=== PATIENT | male | born 1985 | race Caucasian/White ===

== ENCOUNTER 2016-11-14 07:29 | Emergency (ER) | payer OTHER ==
[~2016-11-14] VITALS: Ht 175.3 cm; Wt 90.7 kg
[2016-11-14] MEDS ORDERED: ESCI10TA2 PO (07:41)
[2016-11-14] MEDS ORDERED: KETO2SH (07:42)
[2016-11-14 08:03] LABS: BASO % 0.2 % (0.0-1.0); EOS # 0.2 K/mm3 (0.0-0.50); EOS % 2.9 % (0.0-3.0); LARGE UNSTAINED CELL # 0.1 K/mm3 (0.0-0.4); LARGE UNSTAINED CELL % 1.3 % (0.0-4.0); LYMPH # 1.4 K/mm3 (1.5-6.5); LYMPH % 20.8 % (24.0-44.0); MEAN CORPUSCULAR HEMOGLOBIN 29.7 pg (27.0-33.0); MEAN CORPUSCULAR HGB CONC 34.9 g/dl (32.0-36.5); MEAN CORPUSCULAR VOLUME 85.3 fl (80.0-96.0); MONO # 0.4 K/mm3 (0.0-0.8); MONO % 5.6 % (0.0-5.0); NEUTROPHILS # 4.5 K/mm3 (1.8-7.7); NEUTROPHILS % 69.1 % (36.0-66.0); PLATELET COUNT, AUTOMATED 220 k/mm3 (150-450); RED CELL DISTRIBUTION WIDTH 12.7 % (11.5-14.5); WHITE BLOOD COUNT 6.4 K/mm3 (4.0-10.0)
[2016-11-14 08:27] LABS: ANION GAP 7 MEQ/L (8-16); BLOOD UREA NITROGEN 13 MG/DL (7-18); CALCIUM LEVEL 8.7 MG/DL (8.5-10.1); CARBON DIOXIDE LEVEL 25 MEQ/L (21-32); CHLORIDE LEVEL 106 MEQ/L (98-107); GLOMERULAR FILTRATION RATE > 60.0 (>60); GLUCOSE, FASTING 114 MG/DL (70-105); POTASSIUM SERUM 3.8 MEQ/L (3.5-5.1); SODIUM LEVEL 138 MEQ/L (136-145)
--- NOTE | 2016-11-14 08:42 | REP ---
Portable chest: Comparison is 09/06/2009. The lung garcia are clear. The cardiac size is normal. The evelyn, mediastinum, and bony thorax are unremarkable. Impression: Negative portable chest. Signed by Raimundo Lozada MD 11/14/2016 08:34 A
[2016-11-14 10:17] VITALS: BP 143/79
--- NOTE | 2016-11-15 21:28 | ECGEPIP ---
Stationary ECG Study [facility] - ED Test Date: 2016-11-14 Pat Name: FADI CASH Department: Room: - Gender: M Plan Rep: JT : 1985 Requested By: HARMAN He Order Number: [id number] Reading MD: Anjana Thomson Measurements Intervals [place] Rate: 81 P: 4 NV: 157 QRS: 60 QRSD: 92 T: 22 QT: 346 QTc: 402 Interpretive Statements SINUS RHYTHM NO PRIOR FOR COMPARISON Electronically Signed On 11-15-2016 21:28:24 EDT by Anjana Thomson
== END 2016-11-14 10:18 | disposition home or self-care (01) ==
LOC: EDBD 07:29 → M ED 08:07
DX: R07.9 Chest pain, unspecified (principal); F41.9 Anxiety disorder, unspecified; M10.9 Gout, unspecified; Z87.891 Personal history of nicotine dependence

== ENCOUNTER 2017-07-31 12:02 | Emergency (ER) | payer OTHER, SELFPAY ==
[~2017-07-31] VITALS: Ht 175.3 cm; Wt 90.9 kg
[~2017-07-31 12:02] MED LIST: ESCI10TA2 PO; KETO2SH
[2017-07-31 12:58] LABS: MEAN CORPUSCULAR HEMOGLOBIN 29.9 pg (27.0-33.0); MEAN CORPUSCULAR HGB CONC 35.1 g/dl (32.0-36.5); MEAN CORPUSCULAR VOLUME 85.1 fl (80.0-96.0); PLATELET COUNT, AUTOMATED 275 10^3/uL (150-450); RED CELL DISTRIBUTION WIDTH 12.7 % (11.5-14.5); WHITE BLOOD COUNT 10.9 10^3/uL (4.0-10.0)
[2017-07-31 13:29] LABS: METHADONE URINE NEGATIVE (NEGATIVE)
[2017-07-31 13:41] LABS: ALBUMIN 4.3 GM/DL (3.2-5.2); ALBUMIN/GLOBULIN RATIO 1.34 (1.00-1.93); ALKALINE PHOSPHATASE 66 U/L (45-117); ALT/SGPT 28 U/L (12-78); ANION GAP 9 MEQ/L (8-16); AST/SGOT 17 U/L (7-37); BILIRUBIN,DIRECT < 0.1 MG/DL (0.0-0.2); BILIRUBIN,TOTAL 0.4 MG/DL (0.2-1.0); BLOOD UREA NITROGEN 12 MG/DL (7-18); CALCIUM LEVEL 8.7 MG/DL (8.5-10.1); CARBON DIOXIDE LEVEL 25 MEQ/L (21-32); CHLORIDE LEVEL 105 MEQ/L (98-107); CREATININE FOR GFR 0.81 MG/DL (0.70-1.30); GLOMERULAR FILTRATION RATE > 60.0 (>60); GLUCOSE, FASTING 94 MG/DL (70-105); POTASSIUM SERUM 4.3 MEQ/L (3.5-5.1); SODIUM LEVEL 139 MEQ/L (136-145); TOTAL PROTEIN 7.5 GM/DL (6.4-8.2)
[2017-07-31 16:31] VITALS: BP 134/78
== END 2017-07-31 16:33 | disposition home or self-care (01) ==
LOC: M ED 12:02
DX: F33.9 Major depressive disorder, recurrent, unspecified (principal); R45.851 Suicidal ideations; J30.89 Other allergic rhinitis; F17.210 Nicotine dependence, cigarettes, uncomplicated
CPT/HCPCS: 36415; 80048; 80076; 80307; 84443; 85027; 99283; G0480

== ENCOUNTER 2017-10-13 10:53 | Inpatient (IN) | payer MEDICAID, OTHER ==
[2017-10-13 11:21] LABS: HEMATOCRIT 42.6 % (42.0-52.0); HEMOGLOBIN 14.9 g/dl (14.0-18.0); MEAN CORPUSCULAR HEMOGLOBIN 29.5 pg (27.0-33.0); MEAN CORPUSCULAR VOLUME 84.4 fl (80.0-96.0); PLATELET COUNT, AUTOMATED 258 10^3/uL (150-450); RED BLOOD COUNT 5.05 10^6/uL (4.30-6.10); RED CELL DISTRIBUTION WIDTH 12.4 % (11.5-14.5); WHITE BLOOD COUNT 9.4 10^3/uL (4.0-10.0)
[2017-10-13 11:48] LABS: AMPHETAMINES LEVEL URINE NEGATIVE (NEGATIVE); BARBITURATES URINE NEGATIVE (NEGATIVE); BENZODIAZEPINES URINE NEGATIVE (NEGATIVE); CANNABINOIDS URINE POSITIVE (NEGATIVE); COCAINE METABOLITE URINE NEGATIVE (NEGATIVE); METHADONE URINE NEGATIVE (NEGATIVE); OPIATES URINE NEGATIVE (NEGATIVE); PHENCYCLIDINE URINE NEGATIVE (NEGATIVE)
[2017-10-13 11:57] LABS: ALBUMIN 4.2 GM/DL (3.2-5.2); ALBUMIN/GLOBULIN RATIO 1.31 (1.00-1.93); ALKALINE PHOSPHATASE 71 U/L (45-117); ALT/SGPT 20 U/L (12-78); ANION GAP 7 MEQ/L (8-16); AST/SGOT 12 U/L (7-37); BILIRUBIN,DIRECT < 0.1 MG/DL (0.0-0.2); BILIRUBIN,TOTAL 0.4 MG/DL (0.2-1.0); BLOOD UREA NITROGEN 10 MG/DL (7-18); CALCIUM LEVEL 8.8 MG/DL (8.5-10.1); CARBON DIOXIDE LEVEL 27 MEQ/L (21-32); CHLORIDE LEVEL 108 MEQ/L (98-107); CREATININE FOR GFR 0.87 MG/DL (0.70-1.30); ETHYL ALCOHOL (ETHANOL) 0.003 % (0.000-0.010); GLOMERULAR FILTRATION RATE > 60.0 (>60); GLUCOSE, FASTING 90 MG/DL (70-100); POTASSIUM SERUM 3.9 MEQ/L (3.5-5.1); SALICYLATE LEVEL 3.4 MG/DL (5.0-30.0); SODIUM LEVEL 142 MEQ/L (136-145); THYROID STIMULATING HORMONE 0.569 uIU/ML (0.358-3.740); TOTAL PROTEIN 7.4 GM/DL (6.4-8.2)
[2017-10-13 12:07] LABS: ACETAMINOPHEN LEVEL < 2.0 UG/ML (10.0-30.0)
[2017-10-13] MEDS ORDERED: MAALOX 30 ML SUSP *UDC PO (14:00)
[2017-10-13] MEDS ORDERED: MOM 30ML SUSPENSION UDC PO (14:00)
[2017-10-13] MEDS ORDERED: ACETAMINOPHEN TAB 650MG DOSE (2X325MG) PO (14:00)
[2017-10-13] MEDS: traZODone 50 MG TAB PO (21:37)
[2017-10-14] MEDS: buPROPion **XL** TABLET 150MG (WELLBUTRIN XL) PO (13:29)
[2017-10-14] MEDS: LORazepam 1 MG TAB PO (20:52)
[2017-10-15] MEDS: buPROPion **XL** TABLET 150MG (WELLBUTRIN XL) PO (08:05)
[2017-10-16] MEDS: buPROPion **XL** TABLET 150MG (WELLBUTRIN XL) PO (08:19)
[2017-10-16] MEDS: diphenhydrAMINE 50 MG CAP PO (15:18)
[2017-10-16] MEDS: EUCERIN 120GM CREAM TOP (20:37)
[2017-10-17] MEDS: EUCERIN 120GM CREAM TOP (08:10)
[2017-10-17] MEDS ORDERED: buPROPion **XL** TABLET 150MG (WELLBUTRIN XL) PO (09:00)
== END 2017-10-17 10:30 | disposition home or self-care (01) | DRG 885 ==
LOC: M ED 10:53 → M ED INP 13:57 → M PSY 15:30
DX: F33.1 Major depressive disorder, recurrent, moderate (principal); F41.1 Generalized anxiety disorder; F17.210 Nicotine dependence, cigarettes, uncomplicated

== ENCOUNTER 2018-05-02 17:43 | Inpatient (IN) | payer OTHER, MEDICAID ==
[2018-05-02 18:54] LABS: HEMATOCRIT 43.5 % (42.0-52.0); HEMOGLOBIN 15.2 g/dl (13.5-17.5); MEAN CORPUSCULAR HEMOGLOBIN 29.5 pg (27.0-33.0); MEAN CORPUSCULAR HGB CONC 34.9 g/dl (32.0-36.5); MEAN CORPUSCULAR VOLUME 84.3 fl (80.0-96.0); PLATELET COUNT, AUTOMATED 249 10^3/uL (150-450); RED BLOOD COUNT 5.16 10^6/uL (4.30-6.10); RED CELL DISTRIBUTION WIDTH 13.1 % (11.5-14.5); WHITE BLOOD COUNT 10.9 10^3/uL (4.0-10.0)
[2018-05-02 19:18] LABS: AMPHETAMINES LEVEL URINE NEGATIVE (NEGATIVE); BARBITURATES URINE NEGATIVE (NEGATIVE); BENZODIAZEPINES URINE NEGATIVE (NEGATIVE); CANNABINOIDS URINE POSITIVE (NEGATIVE); COCAINE METABOLITE URINE NEGATIVE (NEGATIVE); METHADONE URINE NEGATIVE (NEGATIVE); OPIATES URINE NEGATIVE (NEGATIVE); PHENCYCLIDINE URINE NEGATIVE (NEGATIVE)
[2018-05-02 19:48] LABS: ACETAMINOPHEN LEVEL < 2.0 UG/ML (10.0-30.0); ALBUMIN 4.2 GM/DL (3.2-5.2); ALBUMIN/GLOBULIN RATIO 1.27 (1.00-1.93); ALKALINE PHOSPHATASE 66 U/L (45-117); ALT/SGPT 31 U/L (12-78); ANION GAP 7 MEQ/L (8-16); AST/SGOT 15 U/L (7-37); BILIRUBIN,DIRECT 0.2 MG/DL (0.0-0.2); BILIRUBIN,TOTAL 0.5 MG/DL (0.2-1.0); BLOOD UREA NITROGEN 16 MG/DL (7-18); CALCIUM LEVEL 8.7 MG/DL (8.5-10.1); CARBON DIOXIDE LEVEL 27 MEQ/L (21-32); CHLORIDE LEVEL 104 MEQ/L (98-107); CREATININE FOR GFR 0.97 MG/DL (0.70-1.30); ETHYL ALCOHOL (ETHANOL) < 0.003 % (0.000-0.010); GLOMERULAR FILTRATION RATE > 60.0 (>60); GLUCOSE, FASTING 78 MG/DL (70-100); POTASSIUM SERUM 4.1 MEQ/L (3.5-5.1); SALICYLATE LEVEL 2.6 MG/DL (5.0-30.0); SODIUM LEVEL 138 MEQ/L (136-145); THYROID STIMULATING HORMONE 0.984 uIU/ML (0.358-3.740); TOTAL PROTEIN 7.5 GM/DL (6.4-8.2)
[2018-05-02] MEDS ORDERED: ACETAMINOPHEN TAB 650MG DOSE (2X325MG) PO (21:30)
[2018-05-02] MEDS ORDERED: traZODone 50 MG TAB PO (21:30)
[2018-05-02] MEDS ORDERED: MAALOX 30 ML SUSP *UDC PO (21:30)
[2018-05-02] MEDS ORDERED: MOM 30ML SUSPENSION UDC PO (21:30)
[2018-05-03] MEDS: QUEtiapine FUMARATE 50 MG TAB PO (15:59)
[2018-05-03] MEDS ORDERED: QUEtiapine FUMARATE 50 MG TAB PO (21:00)
[2018-05-04] MEDS ORDERED: SERTRALINE HCL 25 MG TABLET PO (09:00)
== END 2018-05-03 18:00 | disposition home or self-care (01) | DRG 753 ==
LOC: M ED 17:43 → M ED INP 21:39 → M PSY 22:00
DX: F31.9 Bipolar disorder, unspecified (principal); G40.909 Epilepsy, unspecified, not intractable, without status epilepticus; M10.9 Gout, unspecified; G47.00 Insomnia, unspecified; Z98.52 Vasectomy status; F17.210 Nicotine dependence, cigarettes, uncomplicated

== ENCOUNTER 2018-09-25 21:58 | Emergency (ER) | payer OTHER ==
[~2018-09-25] VITALS: Ht 175.3 cm; Wt 90.9 kg
[~2018-09-25 21:58] MED LIST changes: +ARIP5TA PO; +BENZ-18 PO; +QUET5TAB PO; +SERT25TA PO; +TRAZO50TA PO
[2018-09-25 21:59] VITALS: BP 153/82
[2018-09-26] MEDS ORDERED: IBUP-359 PO (01:07)
[2018-09-26] MEDS ORDERED: AMOX500C PO (01:07)
[2018-09-26] MEDS ORDERED: AMOXICILLIN 500 MG CAP PO ONE (01:15)
[2018-09-26] MEDS ORDERED: KETOROLAC 60 MG/2 ML VIAL (J1885) IM ONE (01:15)
== END 2018-09-26 01:19 | disposition home or self-care (01) ==
LOC: M ED 21:58
DX: K08.89 Other specified disorders of teeth and supporting structures (principal); K08.531 Fractured dental restorative material with loss of material; F17.200 Nicotine dependence, unspecified, uncomplicated; F32.9 Major depressive disorder, single episode, unspecified; F41.9 Anxiety disorder, unspecified; J30.89 Other allergic rhinitis; Z79.899 Other long term (current) drug therapy
CPT/HCPCS: 96372; 99282; J1885

== ENCOUNTER 2019-09-06 12:28 | Emergency (ER) | payer OTHER ==
[~2019-09-06] VITALS: Ht 175.3 cm; Wt 95.5 kg
[~2019-09-06 12:28] MED LIST changes: +AMOX500C PO; +ARIP1TAB6 PO; -ARIP5TA PO; +IBUP-359 PO; -KETO2SH; +KETO2SHA9; -SERT25TA PO; +SERT25TA85 PO; +TRAZ1TAB10 PO; -TRAZO50TA PO
[2019-09-06 13:20] LABS: HEMATOCRIT 47.5 % (42.0-52.0); HEMOGLOBIN 16.1 g/dl (13.5-17.5); MEAN CORPUSCULAR HEMOGLOBIN 29.4 pg (27.0-33.0); MEAN CORPUSCULAR HGB CONC 33.9 g/dl (32.0-36.5); MEAN CORPUSCULAR VOLUME 86.7 fl (80.0-96.0); PLATELET COUNT, AUTOMATED 274 10^3/uL (150-450); RED BLOOD COUNT 5.48 10^6/uL (4.30-6.10)
[2019-09-06 13:54] LABS: ALBUMIN 4.4 GM/DL (3.2-5.2); ALT/SGPT 46 U/L (12-78); BILIRUBIN,DIRECT 0.1 MG/DL (0.0-0.2); BILIRUBIN,TOTAL 0.4 MG/DL (0.2-1.0); BLOOD UREA NITROGEN 14 MG/DL (7-18); CALCIUM LEVEL 8.6 MG/DL (8.5-10.1); CARBON DIOXIDE LEVEL 26 MEQ/L (21-32); CHLORIDE LEVEL 107 MEQ/L (98-107); GLOMERULAR FILTRATION RATE > 60.0 (>60); GLUCOSE, FASTING 91 MG/DL (70-100); SALICYLATE LEVEL 2.5 MG/DL (5.0-30.0); SODIUM LEVEL 140 MEQ/L (136-145); THYROID STIMULATING HORMONE 0.613 uIU/ML (0.358-3.740); TOTAL PROTEIN 7.6 GM/DL (6.4-8.2)
[2019-09-06 13:54] LABS: AMPHETAMINES LEVEL URINE NEGATIVE (NEGATIVE); BARBITURATES URINE NEGATIVE (NEGATIVE); BENZODIAZEPINES URINE NEGATIVE (NEGATIVE); CANNABINOIDS URINE POSITIVE (NEGATIVE); COCAINE METABOLITE URINE NEGATIVE (NEGATIVE); METHADONE URINE NEGATIVE (NEGATIVE); OPIATES URINE NEGATIVE (NEGATIVE); PHENCYCLIDINE URINE NEGATIVE (NEGATIVE)
[2019-09-06 13:55] LABS: ACETAMINOPHEN LEVEL < 2.0 UG/ML (10.0-30.0); ETHYL ALCOHOL (ETHANOL) < 0.003 % (0.000-0.010)
--- NOTE | 2019-09-06 17:24 | ECGEPIP ---
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
[2019-09-07] MEDS ORDERED: NICOTINE 21MG/24HR 1 EA TRANSDERMAL TD ONE (09:30)
[2019-09-07] MEDS ORDERED: LORazepam 2 MG TAB PO STA (12:41)
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
[2019-09-08 10:45] VITALS: BP 119/67
== END 2019-09-08 10:46 | disposition home or self-care (01) ==
LOC: M ED 12:28
DX: F43.0 Acute stress reaction (principal); F31.9 Bipolar disorder, unspecified; F41.9 Anxiety disorder, unspecified; F90.9 Attention-deficit hyperactivity disorder, unspecified type; F90.8 Attention-deficit hyperactivity disorder, other type; F17.200 Nicotine dependence, unspecified, uncomplicated; F12.10 Cannabis abuse, uncomplicated; Z81.8 Family history of other mental and behavioral disorders; J30.89 Other allergic rhinitis
CPT/HCPCS: 80048; 80076; 80307; 84443; 85027; 93005; 99284; G0480

== ENCOUNTER 2021-12-28 20:49 | Inpatient (IN) | payer OTHER ==
[~2021-12-28] VITALS: Ht 175.3 cm; Wt 95.5 kg
[~2021-12-28 20:49] MED LIST changes: +ESCI10TA16 PO; -ESCI10TA2 PO; +KETO2SHA8; -KETO2SHA9; +QUET50TA4 PO; -QUET5TAB PO
[2021-12-28 21:43] LABS: HEMATOCRIT 40.7 % (42.0-52.0); HEMOGLOBIN 13.9 g/dl (13.5-17.5); MEAN CORPUSCULAR HEMOGLOBIN 29.6 pg (27.0-33.0); MEAN CORPUSCULAR HGB CONC 34.2 g/dl (32.0-36.5); MEAN CORPUSCULAR VOLUME 86.6 fl (80.0-96.0); PLATELET COUNT, AUTOMATED 306 10^3/uL (150-450); WHITE BLOOD COUNT 10.8 10^3/uL (4.0-10.0)
[2021-12-28 22:16] LABS: ACETAMINOPHEN LEVEL < 2.0 UG/ML (10.0-30.0); ALBUMIN 3.7 GM/DL (3.2-5.2); ALT/SGPT 36 U/L (12-78); BILIRUBIN,DIRECT < 0.1 MG/DL (0.0-0.2); BILIRUBIN,TOTAL 0.2 MG/DL (0.2-1.0); BLOOD UREA NITROGEN 16 MG/DL (7-18); CALCIUM LEVEL 8.6 MG/DL (8.5-10.1); CARBON DIOXIDE LEVEL 27 MEQ/L (21-32); CHLORIDE LEVEL 109 MEQ/L (98-107); CREATININE FOR GFR 1.07 MG/DL (0.70-1.30); ETHYL ALCOHOL (ETHANOL) < 0.003 % (0.000-0.010); GLOMERULAR FILTRATION RATE > 60.0 (>60); GLUCOSE, FASTING 98 MG/DL (70-100); POTASSIUM SERUM 3.4 MEQ/L (3.5-5.1); SALICYLATE LEVEL 2.3 MG/DL (5.0-30.0); SODIUM LEVEL 144 MEQ/L (136-145); TOTAL PROTEIN 6.9 GM/DL (6.4-8.2)
[2021-12-28 22:17] LABS: RSV AMPLIFICATION NEGATIVE (NEGATIVE)
[2021-12-29 02:42] LABS: AMPHETAMINES LEVEL URINE NEGATIVE (NEGATIVE); BARBITURATES URINE NEGATIVE (NEGATIVE); BENZODIAZEPINES URINE NEGATIVE (NEGATIVE); CANNABINOIDS URINE POSITIVE (NEGATIVE); COCAINE METABOLITE URINE NEGATIVE (NEGATIVE); METHADONE URINE NEGATIVE (NEGATIVE); OPIATES URINE NEGATIVE (NEGATIVE); PHENCYCLIDINE URINE NEGATIVE (NEGATIVE)
[2021-12-29] MEDS ORDERED: HOME MED LIST COMPLETE! XX SCH (05:45)
[2022-01-02] MEDS: NICOTINE 21MG/24HR 1 EA TRANSDERMAL TD SCH (09:00)
[2022-01-02] MEDS ORDERED: MOM 30ML SUSPENSION UDC PO PRN (12:10)
[2022-01-02] MEDS ORDERED: diphenhydrAMINE 25MG CAP PO PRN (12:10)
[2022-01-02] MEDS ORDERED: ACETAMINOPHEN TAB 650MG DOSE (2X325MG) PO PRN (12:10)
[2022-01-02] MEDS ORDERED: MAALOX 30 ML SUSP *UDC PO PRN (12:10)
[2022-01-02] MEDS ORDERED: traZODone 50 MG TAB PO PRN (12:10)
[2022-01-02 18:00] VITALS: BP 128/70
[2022-01-03 06:31] VITALS: BP 119/79
[2022-01-03] MEDS: NICOTINE 21MG/24HR 1 EA TRANSDERMAL TD SCH (09:00)
[2022-01-03] MEDS: FLUoxetine 20MG CAP PO SCH (12:12)
[2022-01-03 18:00] VITALS: BP 140/78
[2022-01-03] MEDS ORDERED: IBUPROFEN 400MG TAB PO ONE (19:10)
[2022-01-03 20:18] LABS: BASO # 0.1 10^3/uL (0.0-0.2); BASO % 0.4 % (0.0-1.0); EOS # 0.3 10^3/uL (0.0-0.5); HEMATOCRIT 44.9 % (42.0-52.0); HEMOGLOBIN 15.6 g/dl (13.5-17.5); LYMPH # 3.2 10^3/uL (1.5-5.0); LYMPH % 28.2 % (24.0-44.0); MEAN CORPUSCULAR HEMOGLOBIN 29.9 pg (27.0-33.0); MEAN CORPUSCULAR HGB CONC 34.7 g/dl (32.0-36.5); MEAN CORPUSCULAR VOLUME 86.2 fl (80.0-96.0); MONO # 1.1 10^3/uL (0.0-0.8); NEUTROPHILS # 6.5 10^3/uL (1.5-8.5); PLATELET COUNT, AUTOMATED 348 10^3/uL (150-450); RED BLOOD COUNT 5.21 10^6/uL (4.30-6.10); WHITE BLOOD COUNT 11.2 10^3/uL (4.0-10.0)
[2022-01-03 20:36] LABS: ERYTHROCYTE SEDIMENTATION RATE 3 mm/hr (0-15)
[2022-01-03] MEDS: LACTOBACILLUS ACIDOPHILUS CAP (BACID) PO SCH (20:40)
[2022-01-03] MEDS: AUGMENTIN 875 MG TAB PO SCH (20:40)
[2022-01-03 20:48] LABS: BLOOD UREA NITROGEN 10 MG/DL (7-18); C REACTIVE PROTEIN QUANTITATIV 0.44 MG/DL (0.00-0.30); CALCIUM LEVEL 9.3 MG/DL (8.5-10.1); CARBON DIOXIDE LEVEL 29 MEQ/L (21-32); CHLORIDE LEVEL 103 MEQ/L (98-107); CREATININE FOR GFR 1.06 MG/DL (0.70-1.30); GLOMERULAR FILTRATION RATE > 60.0 (>60); GLUCOSE, FASTING 86 MG/DL (70-100); POTASSIUM SERUM 4.2 MEQ/L (3.5-5.1); SODIUM LEVEL 136 MEQ/L (136-145)
[2022-01-04] MEDS ORDERED: IBUPROFEN 400MG TAB PO PRN (01:00)
[2022-01-04 06:26] VITALS: BP 116/64
[2022-01-04] MEDS: NICOTINE 21MG/24HR 1 EA TRANSDERMAL TD SCH (08:09)
[2022-01-04] MEDS: FLUoxetine 20MG CAP PO SCH (08:10)
[2022-01-04] MEDS: AUGMENTIN 875 MG TAB PO SCH ×2 (08:10→20:13)
[2022-01-04] MEDS: LACTOBACILLUS ACIDOPHILUS CAP (BACID) PO SCH ×4 (08:10→20:13)
[2022-01-04 17:29] VITALS: BP 124/65
[2022-01-05 07:00] VITALS: BP 111/59
[2022-01-05] MEDS: LACTOBACILLUS ACIDOPHILUS CAP (BACID) PO SCH (08:16)
[2022-01-05] MEDS: FLUoxetine 20MG CAP PO SCH (08:16)
[2022-01-05] MEDS: AUGMENTIN 875 MG TAB PO SCH (08:17)
[2022-01-05] MEDS: NICOTINE 21MG/24HR 1 EA TRANSDERMAL TD SCH (09:00)
[2022-01-05] MEDS ORDERED: FLUO20CA22 PO (09:01)
[2022-01-05] MEDS ORDERED: NICO21PAT TD (09:01)
[2022-01-05] MEDS ORDERED: AMOX875T2 PO (09:01)
[2022-01-05] MEDS ORDERED: RISATAB3 PO (09:01)
== END 2022-01-05 12:07 | disposition home or self-care (01) | DRG 755 ==
LOC: M ED 20:49 → M ED INP 01-02 12:07 → M PSY 01-02 13:34
PROVIDERS: ADMIT Student in an Organized Health Care Education/Training Program; ATTEND Student in an Organized Health Care Education/Training Program
DX: F43.10 Post-traumatic stress disorder, unspecified (principal); F63.81 Intermittent explosive disorder; F60.89 Other specific personality disorders; F17.210 Nicotine dependence, cigarettes, uncomplicated; Z20.822 Contact with and (suspected) exposure to COVID-19; R45.851 Suicidal ideations; Z91.51 Personal history of suicidal behavior; Z91.14 Patient's other noncompliance with medication regimen; Z60.9 Problem related to social environment, unspecified; G47.00 Insomnia, unspecified; M10.9 Gout, unspecified; Z90.49 Acquired absence of other specified parts of digestive tract; K13.70 Unspecified lesions of oral mucosa

== ENCOUNTER 2023-08-03 21:15 | Emergency (ER) | payer OTHER ==
[~2023-08-03] VITALS: Ht 175.3 cm; Wt 102.3 kg
[~2023-08-03 21:15] MED LIST changes: +AMOX875T2 PO; +FLUO20CA22 PO; +NICO21PAT TD; +RISATAB3 PO
[2023-08-03] MEDS ORDERED: PANT40TA29 (21:32)
[2023-08-03 22:25] LABS: HEMATOCRIT 46.2 % (42.0-52.0); HEMOGLOBIN 16.6 g/dl (13.5-17.5); MEAN CORPUSCULAR HEMOGLOBIN 30.7 pg (27.0-33.0); MEAN CORPUSCULAR HGB CONC 35.9 g/dl (32.0-36.5); MEAN CORPUSCULAR VOLUME 85.6 fl (80.0-96.0); PLATELET COUNT, AUTOMATED 326 10^3/uL (150-450); WHITE BLOOD COUNT 12.3 10^3/uL (4.0-10.0)
[2023-08-03 22:43] LABS: AMPHETAMINES LEVEL URINE NEGATIVE (NEGATIVE); BARBITURATES URINE NEGATIVE (NEGATIVE); BENZODIAZEPINES URINE NEGATIVE (NEGATIVE); COCAINE METABOLITE URINE NEGATIVE (NEGATIVE); METHADONE URINE NEGATIVE (NEGATIVE)
[2023-08-03 22:44] LABS: CANNABINOIDS URINE POSITIVE (NEGATIVE); OPIATES URINE NEGATIVE (NEGATIVE); PHENCYCLIDINE URINE NEGATIVE (NEGATIVE)
[2023-08-03 22:46] LABS: ETHYL ALCOHOL (ETHANOL) 0.009 % (0.000-0.010)
[2023-08-03 22:48] LABS: SALICYLATE LEVEL < 3.0 MG/DL (<30)
[2023-08-03 22:50] LABS: THYROID STIMULATING HORMONE 0.526 uIU/ML (0.55-4.78)
[2023-08-03 22:59] LABS: BLOOD UREA NITROGEN 11 MG/DL (9-23); CREATININE FOR GFR 1.03 MG/DL (0.70-1.30); GLUCOSE, FASTING 108 MG/DL (60-100)
[2023-08-03 23:00] LABS: ALBUMIN 4.5 G/DL (3.2-5.2); ALKALINE PHOSPHATASE 72 U/L (46-116); ALT/SGPT 54 U/L (7.0-40); AST/SGOT 26 U/L (<34); BILIRUBIN,DIRECT 0.2 MG/DL (<0.4); BILIRUBIN,TOTAL 0.6 MG/DL (0.3-1.2); CARBON DIOXIDE LEVEL 23 MMOL/L (20-31); CHLORIDE LEVEL 106 MMOL/L (98-107); GLOMERULAR FILTRATION RATE > 60.0 (>60); POTASSIUM SERUM 3.9 MMOL/L (3.5-5.1); SODIUM LEVEL 139 MMOL/L (136-145); TOTAL PROTEIN 7.6 G/DL (5.7-8.2)
[2023-08-03 23:20] LABS: CALCIUM LEVEL 9.4 MG/DL (8.5-10.1)
[2023-08-04 00:45] VITALS: BP 126/74; TEMP 97.9; O2SAT 97
== END 2023-08-04 00:52 | disposition home or self-care (01) ==
LOC: M ED 21:15
DX: F32.A Depression, unspecified (principal); F31.9 Bipolar disorder, unspecified; F41.9 Anxiety disorder, unspecified; F90.9 Attention-deficit hyperactivity disorder, unspecified type; F17.200 Nicotine dependence, unspecified, uncomplicated; Z88.8 Allergy status to other drugs, medicaments and biological substances; Z91.048 Other nonmedicinal substance allergy status; Z79.899 Other long term (current) drug therapy

== ENCOUNTER 2023-10-23 19:12 | Inpatient (IN) | payer OTHER ==
[~2023-10-23] VITALS: Ht 175.3 cm; Wt 100.0 kg
[~2023-10-23 19:12] MED LIST changes: +PANT40TA29 PO
[2023-10-23 20:05] LABS: HEMATOCRIT 50.9 % (42.0-52.0); HEMOGLOBIN 17.9 g/dl (13.5-17.5); MEAN CORPUSCULAR HEMOGLOBIN 30.2 pg (27.0-33.0); MEAN CORPUSCULAR HGB CONC 35.2 g/dl (32.0-36.5); PLATELET COUNT, AUTOMATED 332 10^3/uL (150-450); RED BLOOD COUNT 5.92 10^6/uL (4.30-6.10); WHITE BLOOD COUNT 12.6 10^3/uL (4.0-10.0)
[2023-10-23 20:29] LABS: BARBITURATES URINE NEGATIVE (NEGATIVE)
[2023-10-23 20:30] LABS: AMPHETAMINES LEVEL URINE NEGATIVE (NEGATIVE); BENZODIAZEPINES URINE NEGATIVE (NEGATIVE); COCAINE METABOLITE URINE NEGATIVE (NEGATIVE); METHADONE URINE NEGATIVE (NEGATIVE); OPIATES URINE NEGATIVE (NEGATIVE); PHENCYCLIDINE URINE NEGATIVE (NEGATIVE)
[2023-10-23 20:31] LABS: CANNABINOIDS URINE POSITIVE (NEGATIVE)
[2023-10-23 20:32] LABS: ETHYL ALCOHOL (ETHANOL) 0.004 % (0.000-0.010)
[2023-10-23 20:34] LABS: ALBUMIN 4.6 G/DL (3.2-5.2); ALKALINE PHOSPHATASE 94 U/L (46-116); ALT/SGPT 58 U/L (7.0-40); AST/SGOT 24 U/L (<34); BILIRUBIN,DIRECT 0.2 MG/DL (<0.4); BILIRUBIN,TOTAL 0.6 MG/DL (0.3-1.2); BLOOD UREA NITROGEN 13 MG/DL (9-23); CARBON DIOXIDE LEVEL 24 MMOL/L (20-31); CHLORIDE LEVEL 103 MMOL/L (98-107); CREATININE FOR GFR 1.13 MG/DL (0.70-1.30); GLOMERULAR FILTRATION RATE > 60.0 (>60); GLUCOSE, FASTING 111 MG/DL (60-100); POTASSIUM SERUM 3.8 MMOL/L (3.5-5.1); SALICYLATE LEVEL < 3.0 MG/DL (<30); SODIUM LEVEL 136 MMOL/L (136-145); TOTAL PROTEIN 8.1 G/DL (5.7-8.2)
[2023-10-23 20:35] LABS: THYROID STIMULATING HORMONE 1.391 uIU/ML (0.55-4.78)
[2023-10-23] MEDS ORDERED: ONDA-83 PO (21:57)
[2023-10-23] MEDS ORDERED: CYCL-707 PO (21:57)
[2023-10-23] MEDS ORDERED: HOME MED LIST COMPLETE! XX SCH (22:00)
[2023-10-24] MEDS: PANTOPRAZOLE 40MG TAB (PROTONIX) PO ONE (02:03)
[2023-10-24] MEDS ORDERED: ONDANSETRON 4MG TAB PO PRN (11:00)
[2023-10-24] MEDS ORDERED: MOM 30ML SUSPENSION UDC PO PRN (11:00)
[2023-10-24] MEDS ORDERED: diphenhydrAMINE 25MG CAP PO PRN (11:00)
[2023-10-24] MEDS ORDERED: IBUPROFEN 400MG TAB PO PRN (11:00)
[2023-10-24] MEDS ORDERED: OLANZapine ORAL DISINTEGRATING TAB 5MG PO PRN (11:00)
[2023-10-24] MEDS ORDERED: ACETAMINOPHEN TAB 650MG DOSE (2X325MG) PO PRN (11:00)
[2023-10-24] MEDS ORDERED: MAALOX 30 ML SUSP *UDC PO PRN (11:00)
[2023-10-24] MEDS ORDERED: traZODone 50 MG TAB PO PRN (11:00)
[2023-10-24] MEDS: CYCLOBENZAPRINE 10MG TABLET PO PRN (12:07)
[2023-10-24 17:44] VITALS: BP 135/81; TEMP 98; O2SAT 95
[2023-10-24] MEDS: PANTOPRAZOLE 40MG TAB (PROTONIX) PO SCH (21:06)
[2023-10-25 06:17] VITALS: BP 141/79; TEMP 97.4; O2SAT 96
[2023-10-25] MEDS: NICOTINE 21MG/24HR 1 EA TRANSDERMAL TD SCH (08:45)
== END 2023-10-25 14:43 | disposition home or self-care (01) | DRG 755 ==
LOC: M ED 19:12 → M ED INP 10-24 10:57 → M PSY 10-24 17:06
PROVIDERS: ADMIT Student in an Organized Health Care Education/Training Program; ATTEND Student in an Organized Health Care Education/Training Program
DX: F43.10 Post-traumatic stress disorder, unspecified (principal); F32.A Depression, unspecified; F17.210 Nicotine dependence, cigarettes, uncomplicated; F43.20 Adjustment disorder, unspecified; F60.89 Other specific personality disorders; G47.00 Insomnia, unspecified; M10.9 Gout, unspecified; F65.9 Paraphilia, unspecified; Z90.49 Acquired absence of other specified parts of digestive tract; Z56.0 Unemployment, unspecified; Z79.899 Other long term (current) drug therapy; Z88.8 Allergy status to other drugs, medicaments and biological substances; Z91.018 Allergy to other foods

== ENCOUNTER 2024-06-08 18:59 | Emergency (ER) | payer MEDICAID, OTHER ==
[~2024-06-08] VITALS: Ht 175.3 cm; Wt 95.0 kg
[~2024-06-08 18:59] MED LIST changes: +CYCL-707 PO; +FLUO-365 PO; -FLUO20CA22 PO; +ONDA-83 PO
[2024-06-08 20:11] LABS: HEMATOCRIT 49.1 % (42.0-52.0); HEMOGLOBIN 17.1 g/dl (13.5-17.5); MEAN CORPUSCULAR HEMOGLOBIN 30.5 pg (27.0-33.0); MEAN CORPUSCULAR HGB CONC 34.8 g/dl (32.0-36.5); MEAN CORPUSCULAR VOLUME 87.7 fl (80.0-96.0); PLATELET COUNT, AUTOMATED 351 10^3/uL (150-450); WHITE BLOOD COUNT 17.4 10^3/uL (4.0-10.0)
[2024-06-08 20:36] LABS: AMPHETAMINES LEVEL URINE NEGATIVE (NEGATIVE)
[2024-06-08 20:37] LABS: BARBITURATES URINE NEGATIVE (NEGATIVE); BENZODIAZEPINES URINE NEGATIVE (NEGATIVE); COCAINE METABOLITE URINE NEGATIVE (NEGATIVE); METHADONE URINE NEGATIVE (NEGATIVE); OPIATES URINE NEGATIVE (NEGATIVE); PHENCYCLIDINE URINE NEGATIVE (NEGATIVE)
[2024-06-08 20:39] LABS: ETHYL ALCOHOL (ETHANOL) < 0.003 % (0.000-0.010)
[2024-06-08 20:41] LABS: ALBUMIN 4.4 G/DL (3.2-5.2); ALKALINE PHOSPHATASE 80 U/L (40-129); ALT/SGPT 45 U/L (7.0-40); AST/SGOT 22 U/L (<34); BILIRUBIN,DIRECT 0.1 MG/DL (<0.4); BILIRUBIN,TOTAL 0.4 MG/DL (0.3-1.2); BLOOD UREA NITROGEN 11 MG/DL (9-23); CALCIUM LEVEL 9.9 MG/DL (8.5-10.1); CARBON DIOXIDE LEVEL 23 MMOL/L (20-31); CHLORIDE LEVEL 105 MMOL/L (98-107); CREATININE FOR GFR 1.01 MG/DL (0.70-1.30); GLOMERULAR FILTRATION RATE > 60.0 (>60); GLUCOSE, FASTING 112 MG/DL (60-100); POTASSIUM SERUM 3.4 MMOL/L (3.5-5.1); SALICYLATE LEVEL < 3.0 MG/DL (<30); SODIUM LEVEL 139 MMOL/L (136-145); TOTAL PROTEIN 8.3 G/DL (5.7-8.2)
[2024-06-08 20:44] LABS: CANNABINOIDS URINE POSITIVE (NEGATIVE)
[2024-06-08 22:36] VITALS: BP 154/83; TEMP 98.6; O2SAT 97
== END 2024-06-08 22:42 | disposition home or self-care (01) ==
LOC: M ED 18:59
DX: F43.0 Acute stress reaction (principal); F32.A Depression, unspecified; F90.9 Attention-deficit hyperactivity disorder, unspecified type; F43.20 Adjustment disorder, unspecified; K21.9 Gastro-esophageal reflux disease without esophagitis; J45.909 Unspecified asthma, uncomplicated; Z88.8 Allergy status to other drugs, medicaments and biological substances; Z79.899 Other long term (current) drug therapy; F17.210 Nicotine dependence, cigarettes, uncomplicated

== ENCOUNTER 2024-06-19 15:40 | Inpatient (IN) | payer OTHER ==
[~2024-06-19] VITALS: Ht 175.3 cm; Wt 93.0 kg
[2024-06-19 16:34] LABS: HEMATOCRIT 45.1 % (42.0-52.0); HEMOGLOBIN 15.7 g/dl (13.5-17.5); MEAN CORPUSCULAR HEMOGLOBIN 30.4 pg (27.0-33.0); MEAN CORPUSCULAR HGB CONC 34.8 g/dl (32.0-36.5); MEAN CORPUSCULAR VOLUME 87.4 fl (80.0-96.0); PLATELET COUNT, AUTOMATED 269 10^3/uL (150-450); RED BLOOD COUNT 5.16 10^6/uL (4.30-6.10)
[2024-06-19 16:49] LABS: ETHYL ALCOHOL (ETHANOL) < 0.003 % (0.000-0.010)
[2024-06-19 16:50] LABS: SALICYLATE LEVEL < 3.0 MG/DL (<30)
[2024-06-19 16:51] LABS: ALBUMIN 4.1 G/DL (3.2-5.2); ALKALINE PHOSPHATASE 76 U/L (40-129); ALT/SGPT 46 U/L (7.0-40); AST/SGOT 28 U/L (<34); BILIRUBIN,DIRECT 0.2 MG/DL (<0.4); BILIRUBIN,TOTAL 0.6 MG/DL (0.3-1.2); BLOOD UREA NITROGEN 10 MG/DL (9-23); CALCIUM LEVEL 9.5 MG/DL (8.5-10.1); CARBON DIOXIDE LEVEL 26 MMOL/L (20-31); CHLORIDE LEVEL 106 MMOL/L (98-107); CREATININE FOR GFR 0.92 MG/DL (0.70-1.30); GLOMERULAR FILTRATION RATE > 60.0 (>60); GLUCOSE, FASTING 93 MG/DL (60-100); POTASSIUM SERUM 3.6 MMOL/L (3.5-5.1); SODIUM LEVEL 140 MMOL/L (136-145); TOTAL PROTEIN 7.7 G/DL (5.7-8.2)
[2024-06-19 16:53] LABS: THYROID STIMULATING HORMONE 0.547 uIU/ML (0.55-4.78)
[2024-06-19 16:59] LABS: AMPHETAMINES LEVEL URINE NEGATIVE (NEGATIVE); BARBITURATES URINE NEGATIVE (NEGATIVE); BENZODIAZEPINES URINE NEGATIVE (NEGATIVE); COCAINE METABOLITE URINE NEGATIVE (NEGATIVE); METHADONE URINE NEGATIVE (NEGATIVE); OPIATES URINE NEGATIVE (NEGATIVE); PHENCYCLIDINE URINE NEGATIVE (NEGATIVE)
[2024-06-19 17:03] LABS: CANNABINOIDS URINE POSITIVE (NEGATIVE)
[2024-06-19] MEDS ORDERED: VILA20TA PO (18:34)
[2024-06-19] MEDS ORDERED: ALLO300T2 PO (18:34)
[2024-06-19] MEDS ORDERED: HOME MED LIST COMPLETE! XX SCH (18:35)
[2024-06-19] MEDS: PANTOPRAZOLE 40MG TAB (PROTONIX) PO SCH (21:20)
[2024-06-19] MEDS: allopurinoL 300 MG TAB PO SCH (21:20)
[2024-06-19] MEDS: VILAZODONE PO SCH (22:34)
[2024-06-20] MEDS ORDERED: MAALOX 30 ML SUSP *UDC PO PRN (18:15)
[2024-06-20] MEDS ORDERED: NICOTINE 21MG/24HR 1 EA TRANSDERMAL TD PRN (18:15)
[2024-06-20] MEDS ORDERED: MOM 30ML SUSPENSION UDC PO PRN (18:15)
[2024-06-20] MEDS ORDERED: ACETAMINOPHEN 325 MG TAB PO PRN (18:15)
[2024-06-20] MEDS ORDERED: IBUPROFEN 400MG TAB PO PRN (18:15)
[2024-06-20 21:12] VITALS: BP 138/85; TEMP 97.5; O2SAT 98
[2024-06-20] MEDS: allopurinoL 300 MG TAB PO SCH (21:23)
[2024-06-20] MEDS: PANTOPRAZOLE 40MG TAB (PROTONIX) PO SCH (21:23)
[2024-06-20] MEDS: VIIBRYD 20 MG PO SCH (22:56)
[2024-06-21] MEDS ORDERED: UNRESOLVED CLARIFICATION ENTRY XX SCH (00:01)
[2024-06-21 06:26] VITALS: BP 137/79; TEMP 97; O2SAT 99
[2024-06-21] MEDS ORDERED: ENTER DRUG NAME HERE (PATIENT'S OWN MED) PO SCH (09:00)
[2024-06-21 13:49] LABS: FREE T4 1.47 NG/DL (0.89-1.76)
[2024-06-21 13:50] LABS: FREE T3 4.3 PG/ML (2.3-4.2)
[2024-06-21 15:43] VITALS: BP 147/89; TEMP 97.3; O2SAT 96
[2024-06-22 06:23] VITALS: BP 152/96; TEMP 97.6; O2SAT 98
[2024-06-22] MEDS: NICOTINE POLACRILEX 2 MG GUM PO PRN (12:37)
[2024-06-22 15:19] VITALS: BP 145/89; TEMP 97.5; O2SAT 96
[2024-06-22] MEDS: diphenhydrAMINE 25MG CAP PO PRN (20:12)
[2024-06-22] MEDS: traZODone 50 MG TAB PO PRN (20:12)
[2024-06-23 06:34] VITALS: BP 144/76; TEMP 97.7; O2SAT 96
== END 2024-06-23 12:08 | disposition home or self-care (01) | DRG 751 ==
LOC: M ED 15:40 → M ED INP 06-20 18:14 → M PSY 06-20 19:01
PROVIDERS: ADMIT Psychiatry & Neurology Psychiatry; ATTEND Psychiatry & Neurology Psychiatry
DX: F33.2 Major depressive disorder, recurrent severe without psychotic features (principal); F43.10 Post-traumatic stress disorder, unspecified; F17.210 Nicotine dependence, cigarettes, uncomplicated; R45.851 Suicidal ideations; M10.9 Gout, unspecified; F90.9 Attention-deficit hyperactivity disorder, unspecified type; F41.9 Anxiety disorder, unspecified; R10.9 Unspecified abdominal pain; Z79.899 Other long term (current) drug therapy; Z88.8 Allergy status to other drugs, medicaments and biological substances; Z91.018 Allergy to other foods

== ENCOUNTER 2024-07-09 07:06 | Day surgery (SDC) | payer OTHER ==
[~2024-07-09] VITALS: Ht 175.3 cm; Wt 95.3 kg
[~2024-07-09 07:06] MED LIST changes: +ALLO300T2 PO; +VILA20TA PO
[2024-07-09] MEDS ORDERED: propofoL 200 MG/20 ML VIAL As Ordered ONE (07:37)
[2024-07-09] MEDS ORDERED: LIDOCAINE 2% 100MG/5ML SDV (FOR ANES.) As Ordered ONE (07:37)
[2024-07-09] MEDS ORDERED: dexmedeTOMIDine (4MCG/ML)200MCG/50ML BTL (PRECEDEX) As Ordered ONE (09:10)
[2024-07-09 09:21] VITALS: BP 121/60; TEMP 97.2; O2SAT 94
== END 2024-07-09 09:43 | disposition home or self-care (01) ==
LOC: M OPP 07:06
PROVIDERS: ATTEND Surgery
DX: K62.5 Hemorrhage of anus and rectum (principal); R10.31 Right lower quadrant pain; K21.9 Gastro-esophageal reflux disease without esophagitis; J45.909 Unspecified asthma, uncomplicated; Z79.899 Other long term (current) drug therapy; M10.9 Gout, unspecified; F17.210 Nicotine dependence, cigarettes, uncomplicated; Z90.49 Acquired absence of other specified parts of digestive tract; Z88.8 Allergy status to other drugs, medicaments and biological substances; Z91.018 Allergy to other foods

== ENCOUNTER 2024-10-02 21:59 | Emergency (ER) | payer OTHER ==
[~2024-10-02] VITALS: Ht 177.8 cm; Wt 100.0 kg
[2024-10-02] MEDS ORDERED: VILA40TA PO (22:44)
[2024-10-02] MEDS ORDERED: ACE65ERTAB PO (22:44)
[2024-10-02] MEDS ORDERED: med rec comment (22:45)
[2024-10-02] MEDS ORDERED: HOME MED LIST COMPLETE! XX SCH (22:50)
[2024-10-02 22:59] LABS: HEMATOCRIT 45.9 % (42.0-52.0); HEMOGLOBIN 15.9 g/dl (13.5-17.5); MEAN CORPUSCULAR HEMOGLOBIN 30.4 pg (27.0-33.0); MEAN CORPUSCULAR HGB CONC 34.6 g/dl (32.0-36.5); MEAN CORPUSCULAR VOLUME 87.8 fl (80.0-96.0); PLATELET COUNT, AUTOMATED 288 10^3/uL (150-450); RED BLOOD COUNT 5.23 10^6/uL (4.30-6.10); WHITE BLOOD COUNT 12.7 10^3/uL (4.0-10.0)
[2024-10-02 23:25] LABS: AMPHETAMINES LEVEL URINE NEGATIVE (NEGATIVE); BARBITURATES URINE NEGATIVE (NEGATIVE); BENZODIAZEPINES URINE NEGATIVE (NEGATIVE); COCAINE METABOLITE URINE NEGATIVE (NEGATIVE); METHADONE URINE NEGATIVE (NEGATIVE); OPIATES URINE NEGATIVE (NEGATIVE); PHENCYCLIDINE URINE NEGATIVE (NEGATIVE)
[2024-10-02 23:29] LABS: CANNABINOIDS URINE POSITIVE (NEGATIVE)
[2024-10-02 23:39] LABS: ETHYL ALCOHOL (ETHANOL) < 0.003 % (0.000-0.010); SALICYLATE LEVEL < 3.0 MG/DL (<30)
[2024-10-02 23:40] LABS: ALKALINE PHOSPHATASE 77 U/L (40-129); ALT/SGPT 39 U/L (7.0-40); AST/SGOT 29 U/L (<34); BILIRUBIN,DIRECT 0.1 MG/DL (<0.4); BILIRUBIN,TOTAL 0.4 MG/DL (0.3-1.2); BLOOD UREA NITROGEN 8 MG/DL (9-23); CALCIUM LEVEL 9.2 MG/DL (8.5-10.1); CARBON DIOXIDE LEVEL 26 MMOL/L (20-31); CHLORIDE LEVEL 106 MMOL/L (98-107); CREATININE FOR GFR 1.05 MG/DL (0.70-1.30); GLOMERULAR FILTRATION RATE > 60.0 (>60); GLUCOSE, FASTING 99 MG/DL (60-100); POTASSIUM SERUM 4.3 MMOL/L (3.5-5.1); SODIUM LEVEL 142 MMOL/L (136-145); TOTAL PROTEIN 7.4 G/DL (5.7-8.2)
[2024-10-03] MEDS ORDERED: ENTER DRUG NAME HERE (PATIENT'S OWN MED) PO SCH ×3 (00:55→21:00)
[2024-10-03] MEDS: UNRESOLVED CLARIFICATION ENTRY XX SCH (01:00)
[2024-10-03] MEDS: allopurinoL 300 MG TAB PO SCH (01:00)
[2024-10-03] MEDS: PANTOPRAZOLE 40MG TAB (PROTONIX) PO SCH (01:00)
[2024-10-03] MEDS: NAPROXEN 250 MG TAB PO ONE (09:14)
[2024-10-03 16:03] VITALS: BP 140/90; TEMP 98; O2SAT 100
[2024-10-03] MEDS ORDERED: allopurinoL 300 MG TAB PO SCH (21:00)
== END 2024-10-03 16:03 | disposition home or self-care (01) ==
LOC: M ED 21:59
DX: F32.9 Major depressive disorder, single episode, unspecified (principal); F60.3 Borderline personality disorder; F41.9 Anxiety disorder, unspecified; Z91.51 Personal history of suicidal behavior; F43.10 Post-traumatic stress disorder, unspecified; J30.89 Other allergic rhinitis; Z79.899 Other long term (current) drug therapy; Z88.8 Allergy status to other drugs, medicaments and biological substances; Z91.018 Allergy to other foods

== ENCOUNTER 2024-11-21 14:22 | Inpatient (IN) | payer OTHER ==
[~2024-11-21] VITALS: Ht 175.3 cm; Wt 95.0 kg
[~2024-11-21 14:22] MED LIST changes: +ACE65ERTAB PO; +VILA40TA PO; +med rec comment
[2024-11-21 15:21] LABS: HEMATOCRIT 48.9 % (42.0-52.0); HEMOGLOBIN 17.3 g/dl (13.5-17.5); MEAN CORPUSCULAR HEMOGLOBIN 30.5 pg (27.0-33.0); MEAN CORPUSCULAR HGB CONC 35.4 g/dl (32.0-36.5); MEAN CORPUSCULAR VOLUME 86.2 fl (80.0-96.0); PLATELET COUNT, AUTOMATED 288 10^3/uL (150-450); RED BLOOD COUNT 5.67 10^6/uL (4.30-6.10); WHITE BLOOD COUNT 10.1 10^3/uL (4.0-10.0)
[2024-11-21 15:40] LABS: AMPHETAMINES LEVEL URINE NEGATIVE (NEGATIVE)
[2024-11-21 15:41] LABS: BARBITURATES URINE NEGATIVE (NEGATIVE); BENZODIAZEPINES URINE NEGATIVE (NEGATIVE); CANNABINOIDS URINE POSITIVE (NEGATIVE); COCAINE METABOLITE URINE NEGATIVE (NEGATIVE); METHADONE URINE NEGATIVE (NEGATIVE); OPIATES URINE NEGATIVE (NEGATIVE); PHENCYCLIDINE URINE NEGATIVE (NEGATIVE)
[2024-11-21 15:44] LABS: ETHYL ALCOHOL (ETHANOL) 0.004 % (0.000-0.010)
[2024-11-21 15:46] LABS: ALBUMIN 4.3 G/DL (3.2-5.2); ALKALINE PHOSPHATASE 80 U/L (40-129); ALT/SGPT 55 U/L (7.0-40); AST/SGOT 26 U/L (<34); BILIRUBIN,DIRECT 0.1 MG/DL (<0.4); BILIRUBIN,TOTAL 0.5 MG/DL (0.3-1.2); BLOOD UREA NITROGEN 12 MG/DL (9-23); CALCIUM LEVEL 9.3 MG/DL (8.5-10.1); CARBON DIOXIDE LEVEL 25 MMOL/L (20-31); CHLORIDE LEVEL 104 MMOL/L (98-107); CREATININE FOR GFR 1.03 MG/DL (0.70-1.30); GLOMERULAR FILTRATION RATE > 90.0 (>60); GLUCOSE, FASTING 103 MG/DL (60-100); POTASSIUM SERUM 4.2 MMOL/L (3.5-5.1); SALICYLATE LEVEL < 3.0 MG/DL (<30); SODIUM LEVEL 138 MMOL/L (136-145); TOTAL PROTEIN 7.8 G/DL (5.7-8.2)
[2024-11-21] MEDS ORDERED: HOME MED LIST COMPLETE! XX SCH (15:55)
[2024-11-21 16:08] LABS: CK-MB VALUE MASS < 1.0 NG/ML (<3.6)
[2024-11-21 16:16] LABS: CPK CREATINE PHOSPHOKINASE 54 U/L (46-171); MB/CK RELATIVE INDEX 1.85 (< OR =4)
[2024-11-21 16:39] LABS: CK-MB VALUE MASS < 1.0 NG/ML (<3.6)
[2024-11-21 16:40] LABS: CPK CREATINE PHOSPHOKINASE 54 U/L (46-171); MB/CK RELATIVE INDEX 1.85 (< OR =4)
[2024-11-21] MEDS ORDERED: diphenhydrAMINE 25MG CAP PO PRN (19:00)
[2024-11-21] MEDS ORDERED: traZODone 50 MG TAB PO PRN (19:00)
[2024-11-21] MEDS ORDERED: MAALOX 30 ML SUSP *UDC PO PRN (19:00)
[2024-11-21] MEDS ORDERED: MOM 30ML SUSPENSION UDC PO PRN (19:00)
[2024-11-21] MEDS: IBUPROFEN 400MG TAB PO PRN (19:29)
[2024-11-21 21:00] VITALS: BP 147/86; TEMP 98; O2SAT 96
[2024-11-21] MEDS: allopurinoL 300 MG TAB PO SCH (21:53)
[2024-11-21] MEDS: PANTOPRAZOLE 40MG TAB (PROTONIX) PO SCH (21:53)
[2024-11-21] MEDS: ACETAMINOPHEN 325 MG TAB PO PRN (22:59)
[2024-11-22] MEDS ORDERED: OLANZapine ORAL DISINTEGRATING TAB 5MG PO PRN (08:55)
[2024-11-22 15:47] VITALS: BP 138/90; TEMP 97.6; O2SAT 98
[2024-11-22] MEDS: VILAZODONE 40 MG PO SCH (20:07)
[2024-11-23 06:24] VITALS: BP 148/75; TEMP 97.6; O2SAT 97
[2024-11-23 15:31] VITALS: BP 148/97; TEMP 97.9; O2SAT 95
[2024-11-24 06:32] VITALS: BP 142/94; TEMP 98.6; O2SAT 97
[2024-11-24] MEDS ORDERED: TRAZ-252 PO (13:20)
[2024-11-24] MEDS ORDERED: VILA40TA PO (13:20)
== END 2024-11-24 14:53 | disposition home or self-care (01) | DRG 754 ==
LOC: EDBD 14:22 → M ED 14:22 → M ED INP 18:59 → M PSY 20:47
PROVIDERS: ADMIT Psychiatry & Neurology Neurology; ATTEND Psychiatry & Neurology Neurology
DX: F32.9 Major depressive disorder, single episode, unspecified (principal); M10.9 Gout, unspecified; F41.1 Generalized anxiety disorder; F90.9 Attention-deficit hyperactivity disorder, unspecified type; F43.10 Post-traumatic stress disorder, unspecified; Z91.018 Allergy to other foods; Z88.8 Allergy status to other drugs, medicaments and biological substances; Z79.899 Other long term (current) drug therapy; J45.909 Unspecified asthma, uncomplicated; F12.90 Cannabis use, unspecified, uncomplicated